=== PATIENT | male | born 1965 | race Caucasian/White ===

== ENCOUNTER 2017-07-31 11:56 | Emergency (ER) | payer SELFPAY ==
[~2017-07-31] VITALS: Ht 180.3 cm; Wt 99.8 kg
[2017-07-31] MEDS ORDERED: ONDANSETRON ODT 4 MG TAB.RAPDIS PO ONE (12:15)
--- NOTE | 2017-07-31 12:30 | RAD ---
CT HEAD INDICATION: FALL OFF 6 FT LADDER TODAY, LACERATION TO BACK OF HEAD COMPARISON: None Available. TECHNIQUE: 5 mm contiguous axial images were obtained from the skull base to the vertex . Exposure: One or more of the following individualized dose reduction techniques were utilized for this examination: 1. Automated exposure control 2. Adjustment of the mA and/or kV according to patient size 3. Use of iterative reconstruction technique FINDINGS: No abnormal attenuation within the brain parenchyma. Prominent cortical vein identified in the right frontoparietal region. No evidence of acute intracranial hemorrhage. No extra-axial fluid collections. No mass effect or midline shift. Ventricular size is appropriate. Basal cisterns are patent. No fractures identified.Wilkins-white differentiation is preserved.Globes and orbits are within normal limits. Paranasal sinuses and mastoid air cells are clear. IMPRESSION: No acute intracranial findings. Electronically signed by: Jamie Shelton MD (07/31/2017 12:26 PM) [id number]
[2017-07-31 13:10] VITALS: BP 184/109
[2017-07-31] MEDS ORDERED: ONDA4TAB10 SL (13:17)
[2017-07-31] MEDS ORDERED: HYDR-971 PO (13:17)
--- NOTE | 2017-07-31 13:17 | PHYS DOC ---
Past History Past Medical History: Hypertension Past Surgical History: No Surgical History Alcohol Use: None Drug Use: None Adult General Chief Complaint Chief Complaint: HEAD INJURY/TRAUMA HPI HPI Patient is a pleasant 52-year-old male who was working on a ladder outside when he lost balance and fell backwards hitting his head on concrete. He briefly lost consciousness. He believes that his head was only about 6 feet off the ground at the time of the fall. He is alert and oriented 4, calm, appears to be no distress. He is complaining of pain to the back of the head as well as a headache. History of hypertension and is noncompliant with his medications. He does not take any blood thinners. He has no other complaints or injuries from the fall and specifically denies any neck pain, focal weakness or focal numbness , vision changes, back pain, chest pain, or shortness of breath. He has some mild nausea but has not vomited. Review of Systems Review of Systems Constitutional: Denies fever or chills [] Eyes: Denies change in visual acuity, redness, or eye pain [] HENT: Denies nasal congestion or sore throat [] Respiratory: Denies cough or shortness of breath [] Cardiovascular: No additional information not addressed in HPI [] GI: Denies abdominal pain, nausea, vomiting, bloody stools or diarrhea [] : Denies dysuria or hematuria [] Musculoskeletal: Denies back pain or joint pain [] Integument: Denies rash or skin lesions [] Neurologic: Denies focal weakness or sensory changes [] +CAIN Endocrine: Denies polyuria or polydipsia [] All other systems were reviewed and found to be within normal limits, except as documented in this note. Current Medications Current Medications Current Medications Medications (Trade) Dose Ordered Sig/[facility] Start Time Stop Time Status Last Admin Dose Admin Fentanyl Citrate (Fentanyl 2ml Vial) 50 mcg 1X ONCE 07/31/17 12:15 07/31/17 12:16 DC 07/31/17 12:19 50 MCG Ondansetron HCl (Zofran Odt) 4 mg 1X ONCE 07/31/17 12:15 07/31/17 12:16 DC 07/31/17 12:19 4 MG Allergies Allergies Allergies Coded Allergies Type Severity Reaction Last Updated Verified No Known Drug Allergies 07/31/17 No Physical Exam Physical Exam Constitutional: Well developed, well nourished, no acute distress, non-toxic appearance. [] HENT: Normocephalic, bilateral external ears normal, oropharynx moist, no oral exudates, nose normal. [] +abrasion to back of head, no laceration, no depression Eyes: PERRLA, EOMI, conjunctiva normal, no discharge. [] Neck: Normal range of motion, no tenderness, supple, no stridor. [] no midline cervical ttp Cardiovascular:Heart rate regular rhythm, no murmur [] Lungs & Thorax: Bilateral breath sounds clear to auscultation [] Abdomen: Bowel sounds normal, soft, no tenderness, no masses, no pulsatile masses. [] Skin: Warm, dry, no erythema, no rash. [] Back: No tenderness, no CVA tenderness. [] Extremities: No tenderness, no cyanosis, no clubbing, ROM intact, no edema. [] Neurologic: Alert and oriented X 3, normal motor function, normal sensory function, no focal deficits noted. [] Psychologic: Affect normal, judgement normal, mood normal. [] Current Patient Data Vital Signs Vital Signs Date Time Temp Pulse Resp B/P (MAP) Pulse Ox O2 Delivery O2 Flow Rate FiO2 07/31/17 12:19 18 98 Room Air 07/31/17 12:07 98.1 103 EKG EKG [] Radiology/Procedures Radiology/Procedures [address] [id number] IMAGING REPORT Signed PATIENT: LAURA MARTINEZ ACCOUNT: [id number] : 1965 LOCATION: ER AGE: 52 SEX: M EXAM STATUS: REG ER ORD. PHYSICIAN: DIANA ALVAREZ DO REASON: fall off ladder, hit back of head PROCEDURE: CT HEAD WO CONTRAST CT HEAD INDICATION: FALL OFF 6 FT LADDER TODAY, LACERATION TO BACK OF HEAD COMPARISON: None Available. TECHNIQUE: 5 mm contiguous axial images were obtained from the skull base to the vertex . Exposure: One or more of the following individualized dose reduction techniques were utilized for this examination: 1. Automated exposure control 2. Adjustment of the mA and/or kV according to patient size 3. Use of iterative reconstruction technique FINDINGS: No abnormal attenuation within the brain parenchyma. Prominent cortical vein identified in the right frontoparietal region. No evidence of acute intracranial hemorrhage. No extra-axial fluid collections. No mass effect or midline shift. Ventricular size is appropriate. Basal cisterns are patent. No fractures identified.Wilkins-white differentiation is preserved.Globes and orbits are within normal limits. Paranasal sinuses and mastoid air cells are clear. IMPRESSION: No acute intracranial findings. Electronically signed by: Jamie Shelton MD (07/31/2017 12:26 PM) [id number] DICTATED AND SIGNED BY: JAMIE SHELTON MD DATE: 07/31/17 1220 CC: DIANA ALVAREZ DO; PCP,NO ~ Course & Med Decision Making Course & Med Decision Making Pertinent Labs and Imaging studies reviewed. (See chart for details) [] Dragon Disclaimer Dragon Disclaimer This electronic medical record was generated, in whole or in part, using a voice recognition dictation system. Departure Departure: Impression: Primary Impression: Closed head injury Additional Impressions: Concussion Scalp abrasion Disposition: 01 HOME, SELF-CARE Condition: STABLE Referrals: PCP,ZAY (PCP) Patient Instructions: Concussion and Brain Injury, Head Injury, Adult Additional Instructions: Follow-up with your doctor in the next 1-2 days. Return to the ER for new or worsening symptoms. Take the prescribed medicine as needed. Scripts Hydrocodone Bit/Acetaminophen (NORCO 5-325 TABLET) 1 Each Tablet 1 TAB PO TID PRN for HEADACHE, #15 TAB Prov: DIANA ALVAREZ DO 07/31/17 Ondansetron (ZOFRAN ODT) 4 Mg Tab.rapdis 1 TAB SL Q8HRS, #20 TAB Prov: DIANA ALVAREZ DO 07/31/17 Problem Qualifiers DIANA ALVAREZ DO Jul 31, 2017 13:17
[2017-07-31] MEDS ORDERED: PROCHLORPERAZINE 10 MG/2 ML VIAL. IM ONE (13:45)
== END 2017-07-31 13:37 | disposition home or self-care (01) ==
LOC: ER 11:56
DX: S06.0X1A Concussion with loss of consciousness of 30 minutes or less, initial encounter (principal); S00.01XA Abrasion of scalp, initial encounter; I10 Essential (primary) hypertension; W11.XXXA Fall on and from ladder, initial encounter; Y93.89 Activity, other specified; Y99.8 Other external cause status; Y92.89 Other specified places as the place of occurrence of the external cause
CPT/HCPCS: 70450; 96372; 99284; J0780; J3010; Q0162

== ENCOUNTER 2018-03-24 19:32 | Emergency (ER) | payer SELFPAY ==
[~2018-03-24] VITALS: Ht 180.3 cm; Wt 99.8 kg
[~2018-03-24 19:32] MED LIST: HYDR-3165 PO; ONDA4TAB10 SL
--- NOTE | 2018-03-24 19:37 | ED.ADGEN ---
Past History Past Medical History: Hypertension, Other Past Surgical History: No Surgical History Alcohol Use: None Drug Use: None Adult General Chief Complaint Chief Complaint ".. I got this bug maybe three days ago... Sore throat, nonproductive dry cough... My mom is getting cancer therapy and I don't want to give her anything... I been around a bunch of sick kids of my girl friend...." HPI HPI Patient is a 52 year old male who presents with above hx and complaints of nonproductive cough, pharyngitis, subjective fever, rhinorrhea, arthralgia, myalgia, and malaise. No recent travel but is exposed to girlfriend 6 children. They have had viral infections. Patient quit smoking 5 years ago. Quit alcohol abuse 18 years ago. Follows with [employer] for his hypertension. No prior history of cardiac disorder other than hypertension. Patient no history immunosuppression. Review of Systems Review of Systems Constitutional: Subjective history of fever or chills [] Eyes: Denies change in visual acuity, redness, or eye pain [] HENT: History of nasal congestion, rhinorrhea and sore throat [] Respiratory: History of nonproductive cough Cardiovascular: No additional information not addressed in HPI [] GI: Denies abdominal pain, nausea, vomiting, bloody stools or diarrhea [] : Denies dysuria or hematuria [] Musculoskeletal: []complaints of myalgia and arthralgia Integument: Denies rash or skin lesions [] Neurologic: Denies headache, focal weakness or sensory changes [] Endocrine: Denies polyuria or polydipsia [] All other systems were reviewed and found to be within normal limits, except as documented in this note. Family History Family History Mother has cancer Current Medications Current Medications Current Medications Medications (Trade) Dose Ordered Sig/[facility] Start Time Stop Time Status Last Admin Dose Admin Albuterol Sulfate (Ventolin Hfa Inhaler) 2 puff 1X ONCE 03/24/18 20:00 03/24/18 20:01 DC 03/24/18 20:01 2 PUFF Prednisone (Prednisone) 50 mg 1X ONCE 03/24/18 20:00 03/24/18 20:01 DC 03/24/18 20:17 50 MG See Nursing for home meds Allergies Allergies Allergies Coded Allergies Type Severity Reaction Last Updated Verified No Known Drug Allergies 07/31/17 No Physical Exam Physical Exam Constitutional: Mild distress, non-toxic appearance. [] HENT: Normocephalic, atraumatic, bilateral external ears normal, oropharynx moist, mildly injected pharynx, no oral exudates, nose swollen turbinates and rhinorrhea clear Eyes: PERRLA, EOMI, conjunctiva normal, no discharge. [] Neck: Normal range of motion, no tenderness, supple, no stridor. [] Cardiovascular:Heart rate regular rhythm, no murmur [] Lungs & Thorax: Bilateral breath sounds equal apex scattered wheezes auscultation [] Abdomen: Bowel sounds normal, soft, no tenderness, no masses, no pulsatile masses. [] Skin: Warm, dry, no erythema, no rash. [] Back: No tenderness, no CVA tenderness. [] Extremities: No tenderness, no cyanosis, no clubbing, ROM intact, no edema. [] Neurologic: Alert and oriented X 3, normal motor function, normal sensory function, no focal deficits noted. [] Psychologic: Affect anxious, judgement normal, mood normal. [] Current Patient Data Vital Signs Vital Signs Date Time Temp Pulse Resp B/P (MAP) Pulse Ox O2 Delivery O2 Flow Rate FiO2 03/24/18 21:20 114 20 172/112 (132) 97 03/24/18 19:32 98.0 Room Air Lab Results Laboratory Tests Test 03/24/18 19:55 Influenza Type A (Rapid) Positive (NEGATIVE) Influenza Type B (Rapid) Positive (NEGATIVE) Group A Streptococcus Rapid Negative (NEGATIVE) EKG EKG [] Radiology/Procedures Radiology/Procedures [] Course & Med Decision Making Course & Med Decision Making Pertinent Labs and Imaging studies reviewed. (See chart for details) Push fluids. Get adequate rest. Wear a mask when around mother - if she is immunosuppressed . Tylenol and Ibuprofen for discomfort. Follow up with primary. Use MDI two puffs four times a da y. Use MDI 2 puffs 4 times a day. [] Final Impression Final Impression 1. Non-productive Cough[] 2. Influenza A and B Dragon Disclaimer Dragon Disclaimer This electronic medical record was generated, in whole or in part, using a voice recognition dictation system. Discharge Summary Visit Information Final Diagnosis Problems Medical Problems: (1) Influenza A Status: Acute (2) Influenza B Status: Acute Brief Hospital Course Allergies Allergies Coded Allergies Type Severity Reaction Last Updated Verified No Known Drug Allergies 07/31/17 No Vital Signs Vital Signs Date Time Temp Pulse Resp B/P (MAP) Pulse Ox O2 Delivery O2 Flow Rate FiO2 03/24/18 21:20 114 20 172/112 (132) 97 03/24/18 19:32 98.0 Room Air Lab Results Laboratory Tests Test 03/24/18 19:55 Influenza Type A (Rapid) Positive (NEGATIVE) Influenza Type B (Rapid) Positive (NEGATIVE) Group A Streptococcus Rapid Negative (NEGATIVE) Brief Hospital Course Mr. Williamson is a 52 old male who presented with viral syndrome. Found to have positive influenza a and B. Discharge Information Condition at Discharge: Improved, Stable Disposition/Orders: D/C to Home Dischare Medications Current Medications Prednisone (Prednisone) 50 mg 1X ONCE PO Last administered on 03/24/18at 20:17 ; Admin Dose 50 MG; Start 03/24/18 at 20:00; Stop 03/24/18 at 20:01; Status DC Albuterol Sulfate (Ventolin Hfa Inhaler) 2 puff 1X ONCE INH Last administered on 03/24/18at 20:01; Admin Dose 2 PUFF; Start 03/24/18 at 20:00; Stop 03/24/18 at 20:01; Status DC Active Scripts Active [place] 5-325 Tablet (Hydrocodone Bit/Acetaminophen) 1 Each Tablet 1 Tab PO TID PRN Zofran Odt (Ondansetron) 4 Mg Tab.rapdis 1 Tab SL Q8HRS Dragon Disclaimer This chart was dictated in whole or in part using Voice Recognition software in a busy, high-work load, and often noisy Emergency Department environment. It may contain unintended and wholly unrecognized errors or omissions. WILLIAM MAGAÑA MD Mar 24, 2018 19:37
[2018-03-24] MEDS ORDERED: ALBUTEROL SULFATE 8GM INHALER. INH ONE (20:00)
[2018-03-24] MEDS ORDERED: predniSONE 10 MG TABLET PO ONE (20:00)
[2018-03-24 20:54] LABS: INFLUENZA A PATIENT POSITIVE (NEGATIVE); INFLUENZA B PATIENT POSITIVE (NEGATIVE)
[2018-03-24 21:20] VITALS: BP 172/112
== END 2018-03-24 21:20 | disposition home or self-care (01) ==
LOC: ER 19:32
DX: J10.1 Influenza due to other identified influenza virus with other respiratory manifestations (principal); I10 Essential (primary) hypertension
CPT/HCPCS: 87070; 87804; 87880; 94640; 99283; J7512; J7613

== ENCOUNTER 2019-03-12 16:02 | Emergency (ER) | payer MEDICAID ==
[~2019-03-12] VITALS: Ht 180.3 cm; Wt 90.0 kg
[2019-03-12 16:15] VITALS: BP 158/104
[2019-03-12] MEDS ORDERED: IBUPROFEN 800 MG TABLET. PO ONE (16:30)
--- NOTE | 2019-03-12 16:33 | PHYS DOC ---
Past History Past Medical History: Hypertension Past Surgical History: No Surgical History Alcohol Use: None Drug Use: None Adult General Chief Complaint Chief Complaint: FLU SYMPTOM HPI HPI Patient is a 53-year-old male who presented to ER today for evaluation of fever and chill, sore throat, productive cough with yellow sputum for about 30 hours. Patient denies any abdominal pain, no nausea vomiting. Patient had the flu vaccination this year. Patient had the flu last year, he felt like he has the flu again. She denies any neck pain, no neck stiffness. Patient denies any headache. All other ROS is negative unless otherwise noted in HPI Review of Systems Review of Systems See above Current Medications Current Medications Current Medications Medications (Trade) Dose Ordered Sig/[facility] Start Time Stop Time Status Last Admin Dose Admin Ibuprofen (Motrin) 800 mg 1X ONCE 03/12/19 16:30 03/12/19 16:31 Allergies Allergies Allergies Coded Allergies Type Severity Reaction Last Updated Verified No Known Drug Allergies 07/31/17 No Physical Exam Physical Exam See above Constitutional: Well developed, well nourished, no acute distress, non-toxic appearance. [] HENT: Normocephalic, atraumatic, bilateral external ears normal, oropharyngeal erythema, no exudation, nasal congestion with clear drainage. Eyes: PERRLA, EOMI, conjunctiva normal, no discharge. [] Neck: Normal range of motion, no tenderness, supple, no stridor. [] Cardiovascular: tachycardia, regular rhythm, no murmur [] Lungs & Thorax: Bilateral breath sounds clear to auscultation [] Abdomen: Bowel sounds normal, soft, no tenderness, no masses, no pulsatile masses. [] Skin: Warm, sweating. Back: No tenderness, no CVA tenderness. [] Extremities: No tenderness, no cyanosis, no clubbing, ROM intact, no edema. [] Neurologic: Alert and oriented X 3, normal motor function, normal sensory function, no focal deficits noted. [] Psychologic: Affect normal, judgement normal, mood normal. [] EKG EKG [] Radiology/Procedures Radiology/Procedures [][address] [id number] IMAGING REPORT Signed PATIENT: LAURA MARTINEZ ACCOUNT: [id number] : 1965 LOCATION: ER AGE: 53 SEX: M EXAM STATUS: REG ER ORD. PHYSICIAN: YUNIOR GALLEGOS DO REASON: productive cough with fever PROCEDURE: CHEST PA & LATERAL EXAM: Chest, 2 views. HISTORY: Productive cough. Fever. COMPARISON: None. FINDINGS: 2 views of the chest are obtained. There is no infiltrate, pleural effusion or pneumothorax. The heart is normal in size. IMPRESSION: No acute pulmonary finding. Electronically signed by: Oly Ward MD (03/12/2019 4:44 PM) [facility] [place]CTATED AND SIGNED BY: OLY WARD MD DATE: 03/12/19 1644 CC: PCP,NO; YUNIOR GALLEGOS DO ~ Course & Med Decision Making Course & Med Decision Making Pertinent Labs and Imaging studies reviewed. (See chart for details) Patient has signs and symptoms consistent with influenza-like illness, will treat him with TAMIFLU. Dragon Disclaimer Dragon Disclaimer This electronic medical record was generated, in whole or in part, using a voice recognition dictation system. Departure Departure: Impression: Primary Impression: Viral syndrome Disposition: HOME, SELF-CARE Condition: STABLE Referrals: PCP,ZAY (PCP) Follow-up with your doctor in 2 days if you are not getting better. Patient Instructions: Viral Syndrome Additional Instructions: Thank you for visiting our Emergency Department. We appreciate you trusting us with your care. If any additional problems come up don't hesitate to return to visit us. Please follow up with your primary care provider so they can plan additional care if needed and know about the problem that you had. If symptoms worsen come back to the Emergency Department. Any concerning symptoms that start such as chest pain, shortness of air, weakness or numbness on one side of the body, running high fevers or any other concerning symptoms return to the ER. Scripts Oseltamivir Phosphate (TAMIFLU) 75 Mg Capsule 1 CAP PO BID for flu, #10 CAP Prov: YUNIOR GALLEGOS DO 03/12/19 YUNIOR GALLEGOS DO Mar 12, 2019 16:33
--- NOTE | 2019-03-12 16:47 | RAD ---
EXAM: Chest, 2 views. HISTORY: Productive cough. Fever. COMPARISON: None. FINDINGS: 2 views of the chest are obtained. There is no infiltrate, pleural effusion or pneumothorax. The heart is normal in size. IMPRESSION: No acute pulmonary finding. Electronically signed by: Oly Ward MD (03/12/2019 4:44 PM) [facility] [place]
[2019-03-12 17:07] LABS: INFLUENZA A PATIENT NEGATIVE (NEGATIVE); INFLUENZA B PATIENT NEGATIVE (NEGATIVE)
[2019-03-12] MEDS ORDERED: OSEL75CA PO (17:39)
== END 2019-03-12 17:44 | disposition home or self-care (01) ==
LOC: ER 16:02
DX: B34.9 Viral infection, unspecified (principal); R50.9 Fever, unspecified; R05 Cough; I10 Essential (primary) hypertension
CPT/HCPCS: 71046; 87070; 87804; 87880; 99285

== ENCOUNTER 2020-04-09 08:44 | Emergency (ER) | payer MEDICAID ==
[~2020-04-09] VITALS: Ht 180.3 cm; Wt 107.0 kg
[~2020-04-09 08:44] MED LIST changes: +OSEL75CA PO
[2020-04-09] MEDS ORDERED: ONDANSETRON PF 4 MG/2 ML VIAL. IVP ONE (09:15)
[2020-04-09] MEDS ORDERED: MORPHINE SULFATE 4 MG/ML DISP.SYRIN. IV ONE ×2 (09:15→13:00)
[2020-04-09] MEDS ORDERED: IV NORMAL SALINE 1,000ML 1,000 ML IV ONE (09:15)
[2020-04-09] MEDS ORDERED: IOHEXOL 300 MG/ML 75 ML VIAL. IV ONE (09:30)
[2020-04-09 09:39] LABS: BASO % 0 % (0-3); EOS # 0.3 x10^3/uL (0.0-0.7); EOS % 3 % (0-3); HEMATOCRIT 53.5 % (39.0-53.0); HEMOGLOBIN 17.6 g/dL (13.0-17.5); LYMPH # 1.5 x10^3/uL (1.0-4.8); LYMPH % 16 % (24-48); MEAN CORPUSCULAR HEMOGLOBIN 30 pg (25-35); MEAN CORPUSCULAR HGB CONC 33 g/dL (31-37); MEAN CORPUSCULAR VOLUME 92 fL (79-100); MONO # 1.2 x10^3/uL (0.0-1.1); MONO % 13 % (0-9); NEUT # 6.3 x10^3uL (1.8-7.7); NEUT % 68 % (31-73); PLATELET COUNT 254 x10^3/uL (140-400); RED BLOOD COUNT 5.82 x10^6/uL (4.30-5.70); RED CELL DISTRIBUTION WIDTH 13.8 % (11.5-14.5); WHITE BLOOD COUNT 9.2 x10^3/uL (4.0-11.0)
[2020-04-09] MEDS ORDERED: CONTRAST GIVEN. MC PRN (09:45)
--- NOTE | 2020-04-09 09:48 | PHYS DOC ---
Past History Past Medical History: Hypertension Additional Past Medical Histor: Contractures of hands Past Surgical History: No Surgical History Additional Past Surgical Histo: Hand surgery Alcohol Use: None Drug Use: None Adult General Chief Complaint Chief Complaint: ABDOMINAL PAIN HPI HPI Patient is a 54-year-old male who presents to the emergency room complaining of severe abdominal pain, nausea, vomiting, diarrhea. Patient symptoms started 4 days ago after eating a veggie burger. He states he developed a sour stomach after that. He started belching and every time he would belch he would have diarrhea. He also has diarrhea anytime he vomits. He last vomited yesterday. He has not been able to eat for the last several days. He saw his primary care doctor yesterday and was given probiotics. He states that he does not feel that they have helped. He has not found anything that helps at home. He did try to eat some cream of wheat today which made his pain significantly worse. He states the pain feels like a burning and aching. He has never had anything like this before. He denies any kind of fever. He has diffuse abdominal pain. He has never had surgery on his abdomen. Review of Systems Review of Systems Complete ROS is negative unless otherwise documented in HPI Current Medications Current Medications Current Medications Medications (Trade) Dose Ordered Sig/[facility]e Start Time Stop Time Status Last Admin Dose Admin Info (Do NOT chart on this entry -- for MONITORING) 1 each PRN DAILY PRN 04/09/20 09:45 04/11/20 09:44 Iohexol (Omnipaque 300 Mg/ml) 75 ml 1X ONCE 04/09/20 09:30 04/09/20 09:32 DC Morphine Sulfate (Morphine 4mg Syringe) 4 mg 1X ONCE 04/09/20 09:15 04/09/20 09:22 DC 04/09/20 09:35 4 MG Ondansetron HCl (Zofran) 4 mg 1X ONCE 04/09/20 09:15 04/09/20 09:16 DC 04/09/20 09:31 4 MG Sodium Chloride 1,000 ml @ 1,000 mls/hr 1X ONCE 04/09/20 09:15 04/09/20 10:14 04/09/20 09:29 1,000 MLS/HR Allergies Allergies Allergies Coded Allergies Type Severity Reaction Last Updated Verified No Known Drug Allergies 07/31/17 No Physical Exam Physical Exam General: Awake, alert, NAD. Well Nourished, well hydrated. Cooperative HEENT: Atraumatic, EOMI, PERRL, airway patent, moist oral mucosa Neck: Supple, trachea midline Respiratory: CTA bilaterally, normal effort, no wheezing/crackles CV: RRR, no murmur, cap refill <2 GI: Soft, nondistended, nontender, no masses MSK: No obvious deformities Skin: Warm, dry, intact Neuro: A&O x3, speech NL, sensory and motor grossly intact, no focal deficits Psych: Normal affect, normal mood, not suicidal or homicidal Current Patient Data Vital Signs Vital Signs Date Time Temp Pulse Resp B/P (MAP) Pulse Ox O2 Delivery O2 Flow Rate FiO2 04/09/20 09:35 22 96 04/09/20 08:55 97.6 83 143/94 (110) Room Air EKG EKG [] Radiology/Procedures Radiology/Procedures [] Heart Score Risk Factors: Risk Factors: DM, Current or recent (<one month) smoker, HTN, HLP, family history of CAD, obesity. Risk Scores: Risk Factors: DM, Current or recent (<one month) smoker, HTN, HLP, family history of CAD, obesity. Course & Med Decision Making Course & Med Decision Making Pertinent Labs and Imaging studies reviewed. (See chart for details) Patient is a 54 year-old male with a history of hypertension who presents to the Emergency Room complaining of abdominal pain, diarrhea, nausea, vomiting. On exam, patient has diffuse tenderness. Due to patients history, age, and exam work up will need to be done to evaluate for intra-abdominal pathology. Work up ordered includes CBC, CMP, lipase, UA, CT abdomen and pelvis. Patient's pain does not epigastric and a cardiac evaluation will not be needed for atypical more n. Ddx includes gastroenteritis, colitis, diverticulitis. Patient was given morphine, Zofran, fluids here in the emergency room. Work up was reviewed and patient has a small bowel obstruction. Patient will be transferred to [facility]. Dragon Disclaimer Dragon Disclaimer This electronic medical record was generated, in whole or in part, using a voice recognition dictation system. Departure Departure: Impression: Primary Impression: Small bowel obstruction Disposition: 02 DC/TRF OTHER SHORT TERM HOS Condition: IMPROVED Referrals: WILLIAM SCHNEIDER DO (PCP) LEE CARBALLO MD Apr 09, 2020 09:48
[2020-04-09 09:53] LABS: CALCIUM 8.8 mg/dL (8.5-10.1); CREATININE 1.2 mg/dL (0.7-1.3); GFR 62.9; POTASSIUM 4.6 mmol/L (3.5-5.1)
[2020-04-09 09:55] LABS: ALBUMIN 3.6 g/dL (3.4-5.0); ALBUMIN/GLOBULIN RATIO 0.8 (1.0-1.7); TOTAL BILIRUBIN 0.6 mg/dL (0.2-1.0); TOTAL PROTEIN 8.3 g/dL (6.4-8.2)
--- NOTE | 2020-04-09 11:25 | RAD ---
CT ABDOMEN+PELVIS W History: Reason: NAUSEA, VOMITING / Spl. Instructions: / History: Comparison: None. Technique: CT of the abdomen and pelvis with oral and intravenous contrast. Findings: Lung bases are unremarkable. Several subcentimeter hypodensities in the liver too small to characterize but most likely represent benign cysts. The gallbladder, bile ducts, pancreas and spleen are unremarkable. The adrenal glands a nd kidneys are within normal limits. Distended stomach containing contrast and ingested food debris. Mildly dilated small bowel loops with contrast extending to a transition point in the right midabdomen (axial image 53). A second possible transition point is located in the left mid abdomen adjacent to the visualized loops of small bowel (axial image 51). The appendix is normal. Mild descending and sigmoid diverticulosis without evidence for diverticulitis. Partially distended bladder is unremarkable. No free abdominal air or fluid. No significant abdominal pelvic adenopathy. Left fat-containing inguinal canal. Degenerative changes of the right hip. Impression: 1. Findings concerning for small bowel obstruction with possible transition points identified and di lated to collapsed bowel loops. 2. Descending and sigmoid diverticulosis. ------ Exposure: One or more of the following individualized dose reduction techniques were utilized for thi s examination: 1. Automated exposure control 2. Adjustment of the mA and/or kV according to patient size 3. Use of iterative reconstruction technique. Electronically signed by: Estuardo Wilde MD (04/09/2020 11:22 AM) [facility]
[2020-04-09] MEDS ORDERED: LIDOCAINE 2% JELLY 10ML IN APPLICATOR. MM ONE (11:45)
--- NOTE | 2020-04-09 12:47 | RAD ---
AP abdomen radiograph 04/09/2020 CLINICAL HISTORY: Post NG tube placement. An AP erect portable digital radiograph of the abdomen was obtained. A NG tube is seen. The tip of th is tube overlies the body of the stomach. The cardiac silhouette is mildly enlarged. The visualized l hao bases are clear. The abdominal bowel gas pattern is nonspecific. Degenerative changes are seen in volving lower thoracic and throughout the visualized lumbar spine. IMPRESSION: The tip of the NG tube overlies the body of the stomach. Electronically signed by: Braulio Villatoro MD (04/09/2020 12:45 PM) [id number]
[2020-04-09 14:30] VITALS: BP 122/77
== END 2020-04-09 14:34 | disposition short-term general hospital (02) ==
LOC: ER 08:44
DX: K56.609 Unspecified intestinal obstruction, unspecified as to partial versus complete obstruction (principal); I10 Essential (primary) hypertension
CPT/HCPCS: 36415; 74018; 74177; 80053; 83605; 83690; 85025; 96361; 96374; 96375; 96376; 99285; J2270; J2405; J7030; Q9967

== ENCOUNTER → 2021-03-01 | Outpatient (CLI) | payer MEDICAID ==
[2021-03-01 13:24] LABS: BASO # 0.1 x10^3/uL (0.0-0.2); BASO % 1 % (0-3); EOS # 0.3 x10^3/uL (0.0-0.7); EOS % 3 % (0-3); HEMATOCRIT 49.3 % (39.0-53.0); HEMOGLOBIN 16.5 g/dL (13.0-17.5); LYMPH # 2.3 x10^3/uL (1.0-4.8); LYMPH % 29 % (24-48); MEAN CORPUSCULAR HEMOGLOBIN 31 pg (25-35); MEAN CORPUSCULAR HGB CONC 34 g/dL (31-37); MEAN CORPUSCULAR VOLUME 92 fL (79-100); MONO % 13 % (0-9); NEUT # 4.3 x10^3uL (1.8-7.7); NEUT % 54 % (31-73); PLATELET COUNT 260 x10^3/uL (140-400); RED BLOOD COUNT 5.38 x10^6/uL (4.30-5.70); RED CELL DISTRIBUTION WIDTH 13.6 % (11.5-14.5)
[2021-03-01 13:52] LABS: ALBUMIN 3.9 g/dL (3.4-5.0); CALCIUM 9.1 mg/dL (8.5-10.1); CREATININE 1.5 mg/dL (0.7-1.3); GFR 48.4; POTASSIUM 3.9 mmol/L (3.5-5.1); TOTAL BILIRUBIN 0.3 mg/dL (0.2-1.0); TOTAL PROTEIN 7.8 g/dL (6.4-8.2)
[2021-03-02 20:50] LABS: CHOLESTEROL/HDL RATIO 7.9; THYROID STIM HORMONE (TSH) 0.547 uIU/mL (0.358-3.740)
[2021-03-03 00:11] LABS: HEMOGLOBIN A1C 5.4 % (4.8-5.6)
== END ==
LOC: LAB 12:36
PROVIDERS: ATTEND Internal Medicine Cardiovascular Disease
DX: I10 Essential (primary) hypertension (principal); E78.2 Mixed hyperlipidemia
CPT/HCPCS: 80053; 80061; 83036; 83880; 84443; 85025

== ENCOUNTER 2021-04-20 23:16 | Emergency (ER) | payer MEDICAID ==
[~2021-04-20] VITALS: Ht 180.3 cm; Wt 111.4 kg
[2021-04-20] MEDS ORDERED: IOHEXOL 350 MG/ML 100 ML VIAL. ONE (23:24)
--- NOTE | 2021-04-20 23:34 | PHYS DOC ---
Past History Past Medical History: Hypertension Additional Past Medical Histor: Contractures of hands Past Surgical History: Other Additional Past Surgical Histo: Hand surgery Alcohol Use: None Drug Use: None Adult General HPI HPI Patient is a 55-year-old male with a past medical history of vertigo, obstructive sleep apnea, obesity, A. fib status post ablation, hypertension and hypercholesterolemia who presents with a chief complaint of acute onset severe abdominal pain, nausea, vomiting and syncope. States he was in the car when this happened. States he never had anything like this before. States he does smoke cigars but denies any other alcohol or drug use. Denies any recent travels, traumas, illness, fevers, headache, changes in vision, confusion, slurred speech, facial droop, extremity paralysis, shortness of breath, dysuria, hematuria, blood in the stool or diarrhea. Denies any numbness/weakness/tingling. Does not endorse some lower chest pressure as well. Review of Systems Review of Systems Review of systems otherwise unremarkable except noted in HPI Current Medications Current Medications Current Medications Medications (Trade) Dose Ordered Sig/Renee Start Time Stop Time Status Last Admin Dose Admin Iohexol (Omnipaque 350 Mg/ml) 100 ml STK-MED ONCE 04/20/21 23:24 04/20/21 23:25 DC Allergies Allergies Allergies Coded Allergies Type Severity Reaction Last Updated Verified No Known Drug Allergies 07/31/17 No Physical Exam Physical Exam Constitutional: Obese, well nourished, appears in pain, diaphoretic, moaning in pain and stating the room is spinning and on dizzy HENT: Normocephalic, atraumatic,oropharynx moist, no oral exudates, nose normal. [] Eyes: PERRLA, EOMI, conjunctiva normal, no discharge. [] Neck: Normal range of motion, no tenderness, supple, no stridor. [] Cardiovascular:Heart rate regular rhythm, no murmur [] Lungs & Thorax: Bilateral breath sounds clear to auscultation [] Abdomen: Soft, generalized tenderness, no masses appreciated, no rebound, no guarding, POC bedside ultrasound equivocal secondary to body habitus Skin: Cool, wet, no erythema, no rash. [] Back: No tenderness, no CVA tenderness. [] Extremities: No tenderness, no cyanosis, no clubbing, ROM intact, no edema. [] Neurologic: Alert and oriented X 3, normal motor function, normal sensory function, cranial nerves intact, no focal deficits noted. [] Psychologic: Affect normal, judgement normal, mood normal. [] EKG EKG [] Radiology/Procedures Radiology/Procedures [] Heart Score C/O Chest Pain: Yes HEART Score for Chest Pain: HEART Score for Chest Pain Response (Comments) Value History Moderately Suspicious 1 ECG Normal 0 Age >45 - < 65 1 Risk Factors 1 or 2 Risk Factors 1 Troponin < Normal Limit 0 Total 3 Risk Factors: Risk Factors: DM, Current or recent (<one month) smoker, HTN, HLP, family history of CAD, obesity. Risk Scores: Risk Factors: DM, Current or recent (<one month) smoker, HTN, HLP, family history of CAD, obesity. Course & Med Decision Making Course & Med Decision Making Patient is a 55-year-old male who presents to the emergency department with a chief complaint of syncope, acute onset severe abdominal pain, nausea and vomiting Vital signs notable for hypertension. Physical exam noted above. Glucose normal. Taken straight to the CT upon arrival to ED. EKG with a rate of 89, QRS of 96, QTc 499, no STEMI. Troponin normal. Laboratory analysis notable for mild hyponatremia, mild hypokalemia, mild elevation in creatinine, lactate of 2.1. Repeat troponin normal. CT of the head, chest, abdomen and pelvis with no acute findings. Tried a dose of midazolam given patient's history of severe vertigo and symptoms of vertigo. Seem to resolve his symptoms and improve vital signs. Discussed all findings with patient. Discussed differential diagnosis and included vertigo and management at home. Advised to follow-up in the morning with primary care physician update on ED visit and discussed long-term management and evaluation of vertigo including consultation with neurologist or vestibular therapist. Gave strict return precautions to the ED. Patient grateful, verbalized understanding and agreed with plan of discharge. [] Dragon Disclaimer Dragon Disclaimer This electronic medical record was generated, in whole or in part, using a voice recognition dictation system. Departure Departure: Impression: Primary Impression: Abdominal pain Additional Impressions: Nausea & vomiting Vertigo Disposition: HOME / SELF CARE / HOMELESS Condition: STABLE Referrals: WILLIAM SCHNEIDER DO (PCP) Patient Instructions: Abdominal Pain (Nonspecific), Vertigo Additional Instructions: Thank you for coming into the emergency department tonight and allowing us to take care of you. Please read the all of the attached information carefully to go back over some of the things we discussed. Please begin using meclizine, 25 mg twice daily to help with symptoms of vertigo. Please use your diazepam for rescue if your meclizine is not working. As we discussed please try not to move too quickly when going from the lying to sitting or sitting to standing position. It is very important you follow-up in the morning with your primary care physician and discuss her ED visit, and further evaluation and treatment of vertigo including neurologic or vestibular therapy consult. Please come back with new or concerning symptoms as discussed Scripts Diazepam (DIAZEPAM) 5 Mg Tablet 5 MG PO BID for vertigo for 7 Days, #14 TAB 0 Refills Prov: GABY JERRY MD 04/21/21 Problem Qualifiers GABY JERRY MD Apr 20, 2021 23:34
[2021-04-20] MEDS ORDERED: ONDANSETRON PF 4 MG/2 ML VIAL. IVP ONE (23:45)
[2021-04-20 23:51] LABS: BASO # 0.1 x10^3/uL (0.0-0.2); BASO % 1 % (0-3); EOS # 0.4 x10^3/uL (0.0-0.7); EOS % 4 % (0-3); HEMATOCRIT 47.9 % (39.0-53.0); HEMOGLOBIN 16.4 g/dL (13.0-17.5); LYMPH # 3.9 x10^3/uL (1.0-4.8); LYMPH % 39 % (24-48); MEAN CORPUSCULAR HEMOGLOBIN 30 pg (25-35); MEAN CORPUSCULAR HGB CONC 34 g/dL (31-37); MEAN CORPUSCULAR VOLUME 88 fL (79-100); MONO # 1.1 x10^3/uL (0.0-1.1); MONO % 11 % (0-9); NEUT # 4.4 x10^3uL (1.8-7.7); NEUT % 45 % (31-73); PLATELET COUNT 280 x10^3/uL (140-400); RED BLOOD COUNT 5.42 x10^6/uL (4.30-5.70); RED CELL DISTRIBUTION WIDTH 14.3 % (11.5-14.5); WHITE BLOOD COUNT 9.8 x10^3/uL (4.0-11.0)
[2021-04-21 00:13] LABS: CALCIUM 9.2 mg/dL (8.5-10.1); CREATININE 1.4 mg/dL (0.7-1.3); GFR 52.4; POTASSIUM 3.2 mmol/L (3.5-5.1)
[2021-04-21] MEDS ORDERED: CONTRAST GIVEN. MC PRN (00:15)
--- NOTE | 2021-04-21 00:20 | RAD ---
EXAMINATION: CTA chest, abdomen and pelvis with IV contrast. INDICATION:55 years, Male, abdominal pain. TECHNIQUE: Axial CTA images of the chest, abdomen and pelvis were obtained. MIP Coronal and sagittal reformatted performed. COMPARISON: None. Exposure: One or more of the following individualized dose reduction techniques were utilized for thi s examination: 1. Automated exposure control 2. Adjustment of the mA and/or kV according to patient size 3. Use of iterative reconstruction technique. FINDINGS: VASCULAR: Thoracoabdominal aorta is normal in caliber without dissection or atherosclerotic disease. 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 Patent celiac trunk, SMA, NADINE and bilateral renal arteries without significant stenosis. Patent bilateral common iliac arteries. Bilateral internal, e xternal iliac, and common femoral arteries are not opacified well with contrast. NONVASCULAR: CHEST: Visualized thyroid and esophagus are unremarkable. Small sliding hiatal hernia. No lymphadenopathy in the chest by size criteria. Calcified prevascular lymph nodes. Normal cardiac size with no pericardi al effusion. No coronary artery atherosclerotic calcifications. Normal caliber pulmonary arteries. Ce ntral airways are patent. Respiratory motion artifact degrades image quality and evaluation of the pu lmonary parenchyma. Dependent bibasilar subsegmental atelectasis. No focal consolidation, pleural eff usion or pneumothorax. No discrete pulmonary nodule. ABDOMEN/PELVIS: Large artifact from bilateral arms degrades image quality. Liver, and spleen are unremarkable. Gallbladder, biliary ducts, pancreas and adrenal glands and kidne ys are normal. No bowel obstruction. Colonic diverticulosis without acute diverticulitis. Normal appe ndix. No lymphadenopathy in the abdomen or pelvis. No pneumoperitoneum or ascites. Unremarkable urina ry bladder and prostate. MUSCULOSKELETAL STRUCTURES: No acute osseous process. Mild multilevel degenerative changes in the spine. Small fat-containing umb ilical hernia. IMPRESSION: 1. Normal caliber thoracoabdominal aorta without dissection or atherosclerotic disease. 2. No acute abnormality in the chest, abdomen and pelvis. 3. Colonic diverticulosis. -- EXAMINATION: CT head without IV contrast. INDICATION:55 years, Male, altered mental status, dizziness. COMPARISON: None TECHNIQUE: Spiral acquisition of contiguous images from the skull base to the vertex were obtained. S agittal and coronal 2D reformatted series were provided by the technologist. Soft tissue and bone win shar algorithms were reviewed. Exposure: One or more of the following individualized dose reduction techniques were utilized for thi s examination: 1. Automated exposure control 2. Adjustment of the mA and/or kV according to patient size 3. Use of iterative reconstruction technique. FINDINGS: Neither mass, midline shift, intracranial hemorrhage, acute/subacute ischemic changes, nor extraaxial fluid collections are seen. The brain parenchyma is normal in appearance.The ventricles are normal in size. The paranasal sinuses, mastoid air cells, and middle ears are clear.The orbital contents appear withi n normal limits. IMPRESSION: No evidence of acute intracranial abnormality. Electronically signed by: Mark Ruggiero MD (04/21/2021 12:18 AM) [facility]
[2021-04-21 00:25] LABS: ALBUMIN 3.8 g/dL (3.4-5.0); MAGNESIUM 2.3 mg/dL (1.8-2.4); TOTAL BILIRUBIN 0.3 mg/dL (0.2-1.0); TOTAL PROTEIN 7.7 g/dL (6.4-8.2)
[2021-04-21] MEDS ORDERED: IOHEXOL 350 MG/ML 100 ML VIAL. IV ONE (00:30)
--- NOTE | 2021-04-21 00:51 | EKG ---
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
[2021-04-21] MEDS ORDERED: LIDO:MAALOX 1:1 20 ML SINGLE DOSE. ONE (01:21)
[2021-04-21] MEDS ORDERED: LABETALOL 20 MG/4 ML DISP.SYRIN. IVP ONE (01:30)
[2021-04-21] MEDS ORDERED: ONDANSETRON PF 4 MG/2 ML VIAL. IVP ONE (01:30)
[2021-04-21] MEDS ORDERED: LIDO:MAALOX 1:1 20 ML SINGLE DOSE. PO ONE (01:30)
[2021-04-21] MEDS ORDERED: FLUMAZENIL 0.5 MG/5 ML VIAL. IV ONE ×2 (01:57→02:30)
[2021-04-21] MEDS ORDERED: MIDAZOLAM HCL PF 5 MG/5 ML VIAL. IV ONE ×2 (02:00→02:30)
[2021-04-21] MEDS ORDERED: amLODIPine BESYLATE 5 MG TABLET PO ONE (03:30)
[2021-04-21] MEDS ORDERED: DIAZ5TAB4 PO (03:36)
[2021-04-21 04:18] VITALS: BP 155/91
== END 2021-04-21 04:46 | disposition home or self-care (01) ==
LOC: ER 23:16
DX: R10.84 Generalized abdominal pain (principal); R11.2 Nausea with vomiting, unspecified; R42 Dizziness and giddiness; R55 Syncope and collapse; I10 Essential (primary) hypertension; I48.91 Unspecified atrial fibrillation; E78.00 Pure hypercholesterolemia, unspecified; E66.9 Obesity, unspecified; Z20.822 Contact with and (suspected) exposure to COVID-19; Z68.34 Body mass index [BMI] 34.0-34.9, adult
CPT/HCPCS: 36415; 70450; 71275; 74174; 74175; 80053; 83605; 83690; 83735; 83880; 84484; 85025; 85379; 87426; 93005; 96374; 96375; 96376; 99285; C9803; J2250; J2405; J3490; Q9967; U0003